=== PATIENT | female | born 1930 | race Caucasian/White ===

== ENCOUNTER 2019-06-28 12:08 | Inpatient (IN) ==
[2019-06-28 12:51] LABS: Basophils % 0.4 % (0.0-0.8); Eosinophils % 0.2 % (0.00-10.9); Hematocrit 45.6 VOL% (35.7-47.0); Hemoglobin 14.5 GM/DL (12.0-16.0); Immature Granulocytes % 0.9 %; Immature Granulocytes Absolute 0.08 #; Lymphocytes # 0.7 10*3/uL (1.4-4.0); Lymphocytes % 7.4 % (21.3-54.2); Mean Corpuscular HGB Conc 31.8 GM/DL (32-36); Mean Corpuscular Volume 91.6 FL (87-102); Monocytes % 7.9 % (1.7-12.7); Neutrophils % 83.2 % (38.7-73.9); Platelet Count 236 T/CUMM (130-400); Red Blood Count 4.98 MC/CUMM (3.8-5.5); Red Cell Distribution Width 14.1 % (9.3-17.3); White Blood Count 9.3 T/CUMM (4-12)
[2019-06-28 13:05] LABS: Band Neutrophils 4 % (0-10); Lymphocytes 6 % (20-55); Metamyelocytes 2 %; Myelocytes 3 %; Platelet Estimate Normal; Segmented Neutrophils 78 % (50-85); Total Cells Counted 100
[2019-06-28 13:06] LABS: Anisocytosis Slight; Giant Platelets Few; Macrocytosis Slight
[2019-06-28] MEDS ORDERED: PIPERACILLIN/TAZOBACTAM 3,375 MG in SODIUM CHLORIDE 0.9% 100 ML IV STA (13:08)
[2019-06-28 13:10] LABS: Albumin 2.6 G/DL (3.4-5.0); Bilirubin,Total 0.9 MG/DL (0.2-1.0); Calcium 9.6 MG/DL (8.5-10.1); Osmolality,Calculated 301.6 MOS/KG (273-304); Total Protein 8.7 G/DL (6.4-8.3)
[2019-06-28 13:28] LABS: Apearance,Urine Slightly Hazy (Clear); Bilirubin,Urine Negative (Negative); Blood, Urine Negative (Negative); Glucose,Urine (UA) Negative (Negative); Hyaline Casts,Urine 11 /LPF (0-3); Ketones,Urine Negative (Negative); Mucus,Urine Many /LPF (Occasional); Nitrite,Urine Negative (Negative); Protein,Urine 100 MG/DL; RBC,Urine 1 /HPF (0-4); Squamous Epithelial Cell,Urine Occasional /HPF (0-10); Urine Color Amber (Yellow); Urine Specific Gravity 1.026 (1.001-1.035); Urine Urobilinogen < 2.0 EU/DL (0.2-1.0); WBC,Urine 16 /HPF (0-6)
[2019-06-28 13:32] LABS: Ferritin 891.4 ng/ml (8-252)
[2019-06-28] MEDS ORDERED: ONDANSETRON 4 MG/2 ML VIAL IV PRN (15:40)
[2019-06-28] MEDS ORDERED: GLUCAGON 1 MG VIAL IM PRN (15:40)
[2019-06-28] MEDS ORDERED: DEXTROSE 10% 250 ML BAG IV PRN (15:40)
[2019-06-28] MEDS ORDERED: methylPREDNISolone SOD SUC 125 MG/2 ML VIAL IV ONE (15:52)
[2019-06-28] MEDS ORDERED: RISEDRONATE 35 MG TABLET PO SCH ×2 (16:00→17:30)
[2019-06-28] MEDS: SODIUM CHLORIDE 0.45% 1,000 ML IV SCH (17:03)
[2019-06-28] MEDS: ENOXAPARIN 40 MG/0.4 ML SYRINGE SUBCUT SCH (17:48)
[2019-06-28] MEDS: POTASSIUM CHLORIDE 20 MEQ TABLET PO SCH (20:53)
[2019-06-28] MEDS: MEMANTINE 5 MG TABLET PO SCH (20:53)
[2019-06-28] MEDS: DONEPEZIL 10 MG TABLET PO SCH (20:53)
[2019-06-28] MEDS: PRAMIPEXOLE 0.25 MG TABLET PO SCH (20:53)
[2019-06-28] MEDS: MEGESTROL 400 MG/10 ML UDCUP PO SCH (20:53)
[2019-06-28] MEDS: AZITHROMYCIN INJ 500 MG in SODIUM CHLORIDE 0.9% 250 ML IV SCH (22:02)
[2019-06-28] MEDS: HYDROXYCHLOROQUINE 200 MG TABLET PO SCH (23:52)
[2019-06-29] MEDS: PIPERACILLIN/TAZOBACTAM 3,375 MG in SODIUM CHLORIDE 0.9% 100 ML IV SCH ×4 (01:45→18:18)
[2019-06-29 05:46] LABS: Basophils % 0.4 % (0.0-0.8); Hematocrit 43.2 VOL% (35.7-47.0); Hemoglobin 13.6 GM/DL (12.0-16.0); Immature Granulocytes % 1.3 %; Immature Granulocytes Absolute 0.06 #; Lymphocytes # 0.5 10*3/uL (1.4-4.0); Lymphocytes % 9.6 % (21.3-54.2); Mean Corpuscular HGB Conc 31.5 GM/DL (32-36); Mean Corpuscular Volume 92.3 FL (87-102); Mean Platelet Volume 11.7 FL (9.6-12.0); Monocytes % 3.8 % (1.7-12.7); Neutrophils % 84.9 % (38.7-73.9); Platelet Count 219 T/CUMM (130-400); Red Blood Count 4.68 MC/CUMM (3.8-5.5); Red Cell Distribution Width 14.4 % (9.3-17.3); White Blood Count 4.7 T/CUMM (4-12)
[2019-06-29 06:09] LABS: Lymphocytes 8 % (20-55); Platelet Estimate Adequate; Segmented Neutrophils 86 % (50-85); Total Cells Counted 100
[2019-06-29 06:10] LABS: Hypochromasia Slight; Macrocytosis Slight
[2019-06-29 06:51] LABS: Albumin 2.5 G/DL (3.4-5.0); Bilirubin,Total 1.1 MG/DL (0.2-1.0); Calcium 8.4 MG/DL (8.5-10.1); Osmolality,Calculated 303.4 MOS/KG (273-304); Total Protein 7.2 G/DL (6.4-8.3)
[2019-06-29] MEDS: HYDROXYCHLOROQUINE 200 MG TABLET PO SCH ×2 (08:09→20:08)
[2019-06-29] MEDS: POTASSIUM CHLORIDE 20 MEQ TABLET PO SCH ×2 (08:09→20:07)
[2019-06-29] MEDS: ZINC SULFATE 220 MG CAPSULE PO SCH (08:09)
[2019-06-29] MEDS: PANTOPRAZOLE 40 MG TABLET PO SCH (08:09)
[2019-06-29] MEDS: MEGESTROL 400 MG/10 ML UDCUP PO SCH ×2 (08:10→20:07)
[2019-06-29] MEDS: MEMANTINE 5 MG TABLET PO SCH ×2 (08:10→20:08)
[2019-06-29] MEDS: amLODIPine 5 MG TABLET PO SCH (08:16)
[2019-06-29] MEDS: CALCIUM (CARBONATE)/VITAMIN D 500 MG-200 UNIT TABLET PO SCH (08:16)
[2019-06-29] MEDS: SODIUM CHLORIDE 0.45% 1,000 ML IV SCH (11:28)
[2019-06-29] MEDS: ENOXAPARIN 40 MG/0.4 ML SYRINGE SUBCUT SCH (15:56)
[2019-06-29] MEDS: DONEPEZIL 10 MG TABLET PO SCH (20:07)
[2019-06-29] MEDS: PRAMIPEXOLE 0.25 MG TABLET PO SCH (20:08)
[2019-06-29] MEDS: AZITHROMYCIN INJ 500 MG in SODIUM CHLORIDE 0.9% 250 ML IV SCH (23:08)
[2019-06-30] MEDS: PIPERACILLIN/TAZOBACTAM 3,375 MG in SODIUM CHLORIDE 0.9% 100 ML IV SCH ×3 (04:52→19:27)
[2019-06-30 06:34] LABS: Basophils % 0.2 % (0.0-0.8); Hematocrit 42.1 VOL% (35.7-47.0); Hemoglobin 13.2 GM/DL (12.0-16.0); Immature Granulocytes % 0.9 %; Immature Granulocytes Absolute 0.08 #; Lymphocytes % 10.3 % (21.3-54.2); Mean Corpuscular HGB Conc 31.4 GM/DL (32-36); Mean Corpuscular Volume 92.9 FL (87-102); Mean Platelet Volume 11.4 FL (9.6-12.0); Monocytes % 9.2 % (1.7-12.7); Neutrophils % 79.4 % (38.7-73.9); Platelet Count 268 T/CUMM (130-400); Red Blood Count 4.53 MC/CUMM (3.8-5.5); Red Cell Distribution Width 14.3 % (9.3-17.3); White Blood Count 9.3 T/CUMM (4-12)
[2019-06-30 06:44] LABS: Calcium 8.2 MG/DL (8.5-10.1)
[2019-06-30 07:02] LABS: Lymphocytes 8 % (20-55); Platelet Estimate Adequate; Segmented Neutrophils 85 % (50-85); Total Cells Counted 100
[2019-06-30 07:03] LABS: Macrocytosis Slight; Ovalocytes Slight
[2019-06-30] MEDS: SODIUM CHLORIDE 0.45% 1,000 ML IV SCH ×2 (07:14→19:28)
[2019-06-30] MEDS ORDERED: AZITHROMYCIN 250 MG TABLET PO SCH (09:00)
[2019-06-30] MEDS: POTASSIUM CHLORIDE 20 MEQ TABLET PO SCH ×2 (09:20→21:45)
[2019-06-30] MEDS: PANTOPRAZOLE 40 MG TABLET PO SCH (09:20)
[2019-06-30] MEDS: amLODIPine 5 MG TABLET PO SCH (09:20)
[2019-06-30] MEDS: MEGESTROL 400 MG/10 ML UDCUP PO SCH ×2 (09:20→21:45)
[2019-06-30] MEDS: HYDROXYCHLOROQUINE 200 MG TABLET PO SCH ×2 (09:20→21:30)
[2019-06-30] MEDS: MEMANTINE 5 MG TABLET PO SCH ×2 (09:20→21:30)
[2019-06-30] MEDS: CALCIUM (CARBONATE)/VITAMIN D 500 MG-200 UNIT TABLET PO SCH (09:20)
[2019-06-30] MEDS: ENOXAPARIN 40 MG/0.4 ML SYRINGE SUBCUT SCH (16:30)
[2019-06-30] MEDS: PRAMIPEXOLE 0.25 MG TABLET PO SCH (21:45)
[2019-06-30] MEDS: DONEPEZIL 10 MG TABLET PO SCH (21:45)
[2019-07-01 03:22] LABS: Basophils % 0.1 % (0.0-0.8); Eosinophils # 0.1 10*3/uL (0.0-0.87); Eosinophils % 1.3 % (0.00-10.9); Hematocrit 41.9 VOL% (35.7-47.0); Hemoglobin 13.2 GM/DL (12.0-16.0); Immature Granulocytes % 1.3 %; Immature Granulocytes Absolute 0.09 #; Lymphocytes % 13.6 % (21.3-54.2); Mean Corpuscular HGB Conc 31.5 GM/DL (32-36); Mean Corpuscular Volume 92.1 FL (87-102); Mean Platelet Volume 11.5 FL (9.6-12.0); Monocytes % 10.6 % (1.7-12.7); Neutrophils % 73.1 % (38.7-73.9); Platelet Count 287 T/CUMM (130-400); Red Blood Count 4.55 MC/CUMM (3.8-5.5); White Blood Count 7.1 T/CUMM (4-12)
[2019-07-01] MEDS: PIPERACILLIN/TAZOBACTAM 3,375 MG in SODIUM CHLORIDE 0.9% 100 ML IV SCH ×3 (03:30→22:07)
[2019-07-01 03:41] LABS: Calcium 8.1 MG/DL (8.5-10.1); Osmolality,Calculated 285.1 MOS/KG (273-304)
[2019-07-01] MEDS: PANTOPRAZOLE 40 MG TABLET PO SCH (10:16)
[2019-07-01] MEDS: HYDROXYCHLOROQUINE 200 MG TABLET PO SCH ×2 (10:16→22:09)
[2019-07-01] MEDS: CALCIUM (CARBONATE)/VITAMIN D 500 MG-200 UNIT TABLET PO SCH (10:16)
[2019-07-01] MEDS: ZINC SULFATE 220 MG CAPSULE PO SCH (10:17)
[2019-07-01] MEDS: POTASSIUM CHLORIDE 20 MEQ TABLET PO SCH ×2 (10:17→22:08)
[2019-07-01] MEDS: MEMANTINE 5 MG TABLET PO SCH ×2 (10:17→22:09)
[2019-07-01] MEDS: amLODIPine 5 MG TABLET PO SCH (10:17)
[2019-07-01] MEDS: MEGESTROL 400 MG/10 ML UDCUP PO SCH ×2 (10:30→22:09)
[2019-07-01] MEDS: ENOXAPARIN 40 MG/0.4 ML SYRINGE SUBCUT SCH (17:24)
[2019-07-01] MEDS: PRAMIPEXOLE 0.25 MG TABLET PO SCH (22:08)
[2019-07-01] MEDS: DONEPEZIL 10 MG TABLET PO SCH (22:08)
[2019-07-01] MEDS: ACETAMINOPHEN 325 MG TABLET PO PRN (22:09)
[2019-07-01] MEDS: SODIUM CHLORIDE 0.45% 1,000 ML IV SCH (22:10)
[2019-07-02 03:29] LABS: Basophils % 0.5 % (0.0-0.8); Eosinophils # 0.1 10*3/uL (0.0-0.87); Eosinophils % 2.1 % (0.00-10.9); Hematocrit 39.5 VOL% (35.7-47.0); Hemoglobin 12.6 GM/DL (12.0-16.0); Immature Granulocytes % 1.4 %; Immature Granulocytes Absolute 0.09 #; Lymphocytes # 0.9 10*3/uL (1.4-4.0); Mean Corpuscular HGB Conc 31.9 GM/DL (32-36); Mean Corpuscular Volume 91.4 FL (87-102); Mean Platelet Volume 11.4 FL (9.6-12.0); Monocytes % 10.9 % (1.7-12.7); Neutrophils % 72.1 % (38.7-73.9); Platelet Count 295 T/CUMM (130-400); Red Blood Count 4.32 MC/CUMM (3.8-5.5); Red Cell Distribution Width 13.8 % (9.3-17.3); White Blood Count 6.6 T/CUMM (4-12)
[2019-07-02 03:56] LABS: Bilirubin,Total 0.7 MG/DL (0.2-1.0); Calcium 7.6 MG/DL (8.5-10.1); Osmolality,Calculated 278.5 MOS/KG (273-304); Total Protein 6.4 G/DL (6.4-8.3)
[2019-07-02] MEDS: PIPERACILLIN/TAZOBACTAM 3,375 MG in SODIUM CHLORIDE 0.9% 100 ML IV SCH ×3 (05:10→21:00)
[2019-07-02] MEDS: MEMANTINE 5 MG TABLET PO SCH ×2 (09:40→20:31)
[2019-07-02] MEDS: PANTOPRAZOLE 40 MG TABLET PO SCH (09:40)
[2019-07-02] MEDS: HYDROXYCHLOROQUINE 200 MG TABLET PO SCH ×2 (09:40→20:31)
[2019-07-02] MEDS: MEGESTROL 400 MG/10 ML UDCUP PO SCH ×2 (09:40→20:31)
[2019-07-02] MEDS: CALCIUM (CARBONATE)/VITAMIN D 500 MG-200 UNIT TABLET PO SCH (09:40)
[2019-07-02] MEDS: POTASSIUM CHLORIDE 20 MEQ TABLET PO SCH ×2 (09:40→20:30)
[2019-07-02] MEDS: amLODIPine 5 MG TABLET PO SCH (09:40)
[2019-07-02] MEDS: ENOXAPARIN 40 MG/0.4 ML SYRINGE SUBCUT SCH (15:53)
[2019-07-02] MEDS: DONEPEZIL 10 MG TABLET PO SCH (20:30)
[2019-07-02] MEDS: PRAMIPEXOLE 0.25 MG TABLET PO SCH (20:31)
[2019-07-02] MEDS: ACETAMINOPHEN 325 MG TABLET PO PRN (20:32)
[2019-07-03] MEDS: PIPERACILLIN/TAZOBACTAM 3,375 MG in SODIUM CHLORIDE 0.9% 100 ML IV SCH ×3 (06:04→22:05)
[2019-07-03] MEDS: MEGESTROL 400 MG/10 ML UDCUP PO SCH ×2 (09:42→20:45)
[2019-07-03] MEDS: ZINC SULFATE 220 MG CAPSULE PO SCH (09:42)
[2019-07-03] MEDS: amLODIPine 5 MG TABLET PO SCH (09:43)
[2019-07-03] MEDS: CALCIUM (CARBONATE)/VITAMIN D 500 MG-200 UNIT TABLET PO SCH (09:43)
[2019-07-03] MEDS: POTASSIUM CHLORIDE 20 MEQ TABLET PO SCH ×2 (09:43→20:45)
[2019-07-03] MEDS: MEMANTINE 5 MG TABLET PO SCH ×2 (09:43→20:45)
[2019-07-03] MEDS: PANTOPRAZOLE 40 MG TABLET PO SCH (09:43)
[2019-07-03] MEDS: HYDROXYCHLOROQUINE 200 MG TABLET PO SCH (09:43)
[2019-07-03] MEDS: SODIUM CHLORIDE 0.45% 1,000 ML IV SCH ×2 (20:16→23:45)
[2019-07-03] MEDS: DONEPEZIL 10 MG TABLET PO SCH (20:45)
[2019-07-03] MEDS: PRAMIPEXOLE 0.25 MG TABLET PO SCH (20:45)
[2019-07-03] MEDS: ENOXAPARIN 40 MG/0.4 ML SYRINGE SUBCUT SCH (20:45)
[2019-07-04] MEDS: PIPERACILLIN/TAZOBACTAM 3,375 MG in SODIUM CHLORIDE 0.9% 100 ML IV SCH (06:38)
[2019-07-04 09:29] VITALS: BP 138/69
[2019-07-23] MEDS ORDERED: CYANOCOBALAMIN 1000 MCG/1 ML VIAL IM SCH (09:00)
== END 2019-07-04 09:15 | DRG 177 ==
LOC: N.ED 12:08 → SUATTDRO 15:40 → SUPCPDRO 15:40 → N.EDINP 15:40 → N.2E 16:34 → N.2W 06-30 15:53 → N.SDSINP 06-30 15:53
PROVIDERS: ADMIT Family Medicine; ATTEND Internal Medicine